=== PATIENT | male | born 1975 | race Caucasian/White ===

== ENCOUNTER 2020-12-26 12:19 | Outpatient (REF) | payer OTHER, SELFPAY ==
[2020-12-26 13:59] LABS: ALT 56 U/L (16-63); AST 27 U/L (15-37); Calculated LDL 124 mg/dL (<100); Cholesterol 228 mg/dL (<200); HDL Cholesterol 34 mg/dL (40-60); Triglyceride 351 mg/dL (<150)
== END 2020-12-26 12:39 ==
LOC: NCHCN 12:19
PROVIDERS: PCP Nurse Practitioner Family; Visit Provider Nurse Practitioner Family
DX: E78.00 Pure hypercholesterolemia, unspecified (principal); F10.10 Alcohol abuse, uncomplicated
CPT/HCPCS: 80061; 84450; 84460

== ENCOUNTER 2021-05-23 06:07 | Day surgery (SDC) | payer OTHER, SELFPAY ==
[2021-05-23 06:18] VITALS: BP 126/94; PULSE 86; RESP 16; TEMP 36.3; O2SAT 96
--- NOTE | 2021-05-23 06:25 | W.COLOREPORT ---
Date of service: 05/23/21 Time of Service: : Colonoscopy Report Date of procedure: 05/23/21 Pre-op diagnosis general: Colon Cancer Screening Post-op diagnosis procedure note: other (Colon polyp, mild diverticulosis) Procedure: Colonoscopy with polypectomy Surgeon: Cookie Munguia Anesthesia Type: General:No Airway (ASA 2/ Zelda Soni CRNA) Estimated blood loss (mL): 3 Pathology: other (Transverse polyp) Complications: None Disposition: same day Indications: 46 y/o male with diverticulitis (s/p colon resection) presents for his colonoscopy screening pre-op. He reports that he had a Colonoscopy 3-4 years ago while in [place] for evaluation of diverticulosis, after which he had colon resection. He denies a family history of colon cancer. He denies any changes in bowel habits including bloody or black tarry stools, abdominal pain, diarrhea or constipation. He denies constitutional symptoms. Denies use of marijuana or any other recreational or illegal drugs. Prep: Miralax/Dulcolax Procedure Start Time: : Procedure End Time: :53 Retraction Time: 15 minutes Findings: One small <5 mm polyp at the distal Transverse colon Mild diverticulosis in the descending colon Procedure Description: After informed consent was obtained the patient was taken to the procedure room and placed in a left decubitous position. Monitors were applied and a time out was done. The patients name, date of , procedure, allergies to medications and metal in their body was reviewed. The patient was then sedated. Once sedated and comfortable a rectal exam was done. External exam was normal. Internal exam revealed a normal sphincter tone and no palpable masses. The prostate felt smooth and normal in size. The scope was then introduced and retro-flexed. No internal hemorrhoids, polyps or masses were identified on retro-flexion. The scope was then advanced to the cecum witthout difficulty. The ileocecal vlave and appendiceal orifice were identified. The prep was adequate. The scope was then slowly retracted over 15 minutes back into the rectum. Polyps were removed with cold forceps in the distal transverse colon. There was mild diverticulosis noted in the descending colon. The anastamosis was visualized. The scope was removed and the patient was woken up and taken back to Same day surgery in stable condition. The patient tolerated the procedure well and there were no immediate complications. Follow up: The patient should follow up in 5-10 years unless they develop changes in bowel habits or other new gastrointestinal complaints.
--- NOTE | 2021-05-23 06:25 | W.PM.DSUDISC ---
Discharge Plan Disposition Patient Disposition: HOME Condition: Good Discharge Details Reason For Visit: Colonoscopy Attending Provider: Cookie Munguia Primary Care Provider: Sandy Jenkins Home Meds and New Rx's Prescriptions: Continued amoxicillin-pot clavulanate [Augmentin] 875-125 mg tablet 1 tab PO BID RF: 0 ibuprofen 200 mg capsule 400 mg PO Q6H PRNRF: 0 acetaminophen 500 mg capsule 1,000 mg PO Q6H PRNRF: 0 Discontinued polyethylene glycol 3350 17 gram/dose powder 238 g PO ONCE Qty: 238 RF: 0 bisacodyl [Dulcolax (bisacodyl)] 5 mg tablet,delayed release (DR/EC) 5 mg PO ONCE Qty: 4 RF: 0 Discharge Instructions Additional Instructions: Findings: One small polyp A few small diverticula Follow up: depends on final pathology. I will send you a letter in the mail Please call if you develop: fevers >101.5 Nausea or Vomiting Abdominal pain that is not transient Rectal bleeding that is more then a tbsp A hard abdomen and inability to pass gas DAY SURGERY UNIT POST ENDOSCOPY INSTRUCTIONS Instructions for everyone who is given Anesthesia: For your safety, please do the following for the next 24 Hours: a. Do not drive or operate dangerous equipment b. Do not drink alcohol beverages or use any recreational drugs for the first 24 hours or while taking pain medications. The medications in your body may have a reaction that can be dangerous. c. Do not make any important decisions or sign any important papers 1. Generally there are no restrictions on your activity after a day or so has gone by, but you may feel a bit fatigued for a few days. 2. After you arrive home you may have a light meal and return to a normal diet as you can tolerate it without feeling sick to your stomach. 3. After surgery, you may feel pain or discomfort. This should be only transient, but if it persists please contact your doctor. 4. If there are any questions regarding the findings of your procedure, please feel free to contact your doctor. 6. If you are unable to contact your doctor with a problem, contact the hospital at [phone]. 7. Continue all your regular medications unless directed otherwise. I understand the above instructions and have no questions. Signature of Patient or Responsible Adult Escort Date/Time Name of Responsible Adult Escort Signature of Nurse Date/Time Activity:: Activity as Tolerated Diet:: High Fiber diet Discharge Orders Discharge Orders: Discharge Order (Routine); Ordered 05/23/21 Ordered By: Cookie Munguia
[2021-05-23] MEDS: Lactated Ringers 1,000 ML 80 ML IV (06:38)
--- NOTE | 2021-05-23 07:10 | ANES.PREOP_ITS ---
General Info Date of Service Date Performed: 05/23/21 Height: 5 ft 10.08 in Weight: 94.8 kg Body Mass Index (BMI): 29.9 Surgical Procedure: Operation Date: 05/23/21 07:35 Proposed Procedures Side Surgeon flora Munguia MD Meds Allergies and Home Medications Allergies Allergy/AdvReac Type Severity Reaction Status Date / Time Sulfa (Sulfonamide Allergy Severe hives Verified 05/19/21 14:01 Antibiotics) Home Medication Medication Instructions Recorded acetaminophen 500 mg capsule 1,000 mg PO Q6H PRN cap 12/30/20 ibuprofen 200 mg capsule 400 mg PO Q6H PRN cap 12/30/20 amoxicillin 875 mg-potassium 1 tab PO BID 05/05/21 clavulanate 125 mg tablet bisacodyl 5 mg tablet,delayed 5 mg PO ONCE #4 tab 05/05/21 release polyethylene glycol 3350 17 238 g PO ONCE #238 g 05/05/21 gram/dose oral powder Current Visit Medications: Current Medications Generic Name Dose Route Start Last Admin Trade Name Bryantq PRN Reason Stop Dose Admin Hyoscyamine Sulfate 0.125 mg 05/23/21 06:26 Hyoscyamine 0.125 Mg Sl/Oral/Chew SL DIRECTED PRN Ringer's Solution 1,000 mls @ 80 mls/hr 05/23/21 06:00 05/23/21 06:38 IV 06/21/21 23:59 80 mls/hr INFUSION TEJA Administration IV Miscellaneous Supplies 1 each 05/23/21 06:00 Iv Access IV 06/21/21 23:59 DIRECTED TEJA Ondansetron HCl 4 mg 05/23/21 06:26 Ondansetron 4 Mg/2 Ml Vial IVP Q4H PRN PRN Nausea / Vomiting Sodium Chloride 0 ml 05/23/21 06:00 Normal Saline Flush 10 Ml Syr IV 06/21/21 23:59 PRN PRN Sodium Chloride 0 ml 05/23/21 06:00 Normal Saline 10 Ml Vial IJ 06/21/21 23:59 DIRECTED PRN Sterile Water 0 ml 05/23/21 06:00 Water,Injection,Sterile 10 Ml Vial IJ 06/21/21 23:59 DIRECTED PRN PFSH Active Problems Active Problems: Problem Status Onset Code Vitamin D deficiency E55.9 Vitamin B deficiency E53.9 Hypercholesterolemia E78.00 Pipe smoker F17.290 Screening for colon cancer Z12.11 Medical History Medical History History of diverticulitis Skin lesions Tobacco Smoking/Tobacco Use Status: Current every day Tobacco Type: pipe Alcohol Alcohol Intake: current Alcohol intake frequency: 3 or more drinks per day Alcohol type: beer Substance Use Substance use type: does not use Vital Signs and Lab Results Vital Signs Most Recent Vital Signs in EMR: Most Recent Vital Signs Temp Pulse Resp BP Pulse Ox 36.3 C L 86 16 126/94 H 96 05/23/21 06:18 05/23/21 06:18 05/23/21 06:18 05/23/21 06:18 05/23/21 06:18 Lab Results Blood Type / Crossmatch: No Data to Display Complete Blood Count: No Data to Display Complete Metabolic Panel: No Data to Display Liver Function Panel: No Data to Display Coagulation Panel: No Data to Display Cardiac Panel: No Data to Display Arterial Blood Gas: 2 No Data to Display Venous Blood Gas: No Data to Display Pancreas Panel: No Data to Display Thyroid Panel: No Data to Display Infectious Disease: No Data to Display Blood Cultures: No Data to Display Toxicology Panel: No Data to Display Anesthesia Assessment and Plan Anesthesia History Personal History: No History of Anesthesia Complications Family History: No Family History of Anesthesia Complications Exercise Tolerance Exercise Tolerance: Metabolic Equivalents>4 Pertinent Negatives Pertinent Negatives: No Symptoms of GERD (Resolved since weight loss) Cardiac & Pulmonary Exam Cardiac Exam: Normal S1/S2 Heart Sounds Pulmonary Exam: Clear Bilateral Breath Sounds Airway Exam Known Difficult Airway: No Mallampati Class: 1 Mouth Opening: Normal (> 3cm) Thyromental Distance: Greater than 3 cm Neck Range of Motion: Full ROM Neck Circumference: Normal Teeth Condition: Normal Dentition ASA Classification ASA Score: ASA 2 Emergency Case?: No NPO Status NPO Status: NPO Clears >2 hours, Solids >8 hours Anesthesia Plan Resuscitation Status: Full Code Anesthesia Technique: General Anesthesia Airway Planned: Natural Airway Monitors Used: Standard Monitors
[2021-05-23 07:21] VITALS: BMI 29.9
--- NOTE | 2021-05-23 07:45 | BOWEL_PTH ---
PATIENT: Eugene Ramsay LOC: [facility] U#:[id number] AGE/SX: 46/M ROOM: RE05/23/[address]: Cookie Munguia MD : [id number] BED: DIS: 05/23/2021 SPEC #: [id number] RECD: 05/23/21 12:58 STATUS: SHADY REQ #: [id number] CHENG: 05/23/21 07:[address]: Cookie Munguia DEPT: Surgical Specimen RECD BY: Maylin Morris ENTERED: 05/23/21 12:58 SP TYPE: Bowel OTHR DR: Sandy Jenkins Tissues: 1 - BIOPSY BOWEL Procedures: GROSS AND MICRO LEVEL 4 Comments: [id number]
[2021-05-23 08:03] VITALS: BP 123/92; PULSE 80; RESP 16; TEMP 36.6; O2SAT 96
--- NOTE | 2021-05-23 08:04 | W.ANESPOSTOP ---
Postoperative Evaluation Date, Time and Location Date Performed: 05/23/21 Time Performed: 08:04 Patient Location: Day Surgery Unit Vital Signs Most Recent Imported Vital Signs: Most Recent Vital Signs Temp Pulse Resp BP Pulse Ox 36.3 C L 86 16 126/94 H 96 05/23/21 06:18 05/23/21 06:18 05/23/21 06:18 05/23/21 06:18 05/23/21 06:18 Most Recent Manually Entered Vital Signs: Adult Blood Pressure: 123/92 Heart Rate: 82 Respirations: 18 Oxygen Saturation (%): 96 Temperature (C): 36.6 C Pain Score (0-10 Scale): 0 Pain Score Most Recent Pain Score: 0 Assessment Mental Status: Awake (Alert & Oriented to Patient Baseline) Airway and Respiratory Function: Patent airway with normal (patient baseline) respiratory exam Cardiovascular Function: Hemodynamically Stable Hydration Status: Adequately Hydrated Nausea & Vomiting: No Nausea or Vomiting Pain: Pt. Denies Any Pain Peripheral Nerve Block: Patient did not receive a nerve block
[2021-05-23 08:05] VITALS: BP 123/92; PULSE 82; RESP 18; TEMPC 36.6; O2SAT 96
[2021-05-23 08:32] VITALS: BP 137/83; PULSE 75; RESP 16; TEMP 36.6; O2SAT 96
== END 2021-05-23 08:50 | disposition home or self-care (01) ==
PROVIDERS: PCP Nurse Practitioner Family; Visit Provider Surgery
PROC: 0DJD8ZZ Inspection of Lower Intestinal Tract, Via Natural or Artificial Opening Endoscopic (ICD-10-PCS; CPT 45378; principal; 2021-05-23 07:30)
DX: Z12.11 Encounter for screening for malignant neoplasm of colon (principal); K63.5 Polyp of colon; K57.30 Diverticulosis of large intestine without perforation or abscess without bleeding
CPT/HCPCS: 45380; 88305; J2001

== ENCOUNTER 2021-06-09 11:42 | Outpatient (REF) | payer OTHER, SELFPAY ==
[2021-06-09 15:21] LABS: HCT 51.8 % (40.0-50.0); HGB 18.6 g/dL (13.5-17.5); MCH 31.6 pg (27.0-33.0); MCHC 35.9 % (32.0-36.0); MCV 87.9 fL (80-95); MPV 11.9 fL (8.0-11.0); Platelet Count 228 10^3/uL (130-400); RBC 5.89 10^6/uL (4.36-5.78); RDW 11.9 % (11.8-14.1); WBC 8.61 10^3/uL (4.4-10.8)
== END 2021-06-09 11:43 | disposition home or self-care (01) ==
LOC: NCHCN 11:42
PROVIDERS: PCP Nurse Practitioner Family; Visit Provider Nurse Practitioner Family
DX: R04.0 Epistaxis (principal)
CPT/HCPCS: 85027

== ENCOUNTER 2022-02-15 12:31 | Outpatient (REF) | payer BC, SELFPAY ==
[2022-02-15 14:41] LABS: HCT 52.2 % (40.0-50.0); HGB 18.4 g/dL (13.5-17.5); MCH 30.5 pg (27.0-33.0); MCHC 35.2 % (32.0-36.0); MCV 86.6 fL (80-95); MPV 11.8 fL (8.0-11.0); Platelet Count 258 10^3/uL (130-400); RBC 6.03 10^6/uL (4.36-5.78); RDW 11.9 % (11.8-14.1); RDW-SD 37.4 fL; WBC 8.25 10^3/uL (4.4-10.8)
[2022-02-15 15:34] LABS: ALT 60 U/L (16-63); AST 33 U/L (15-37); Albumin 4.3 g/dL (3.4-5.0); Alkaline Phosphatase 74 U/L (46-116); Anion Gap 12.6 mmol/L (3-11); BUN 10 mg/dL (7-18); Bilirubin, Total 0.9 mg/dL (0.2-1.0); CO2 23.4 mmol/L (21.0-32.0); CREATININE 0.9 mg/dL (0.70-1.30); Calcium 9.3 mg/dL (8.5-10.1); Chloride 103 mmol/L (98-107); Glucose 107 mg/dL (74-106); Potassium 5.2 mmol/L (3.5-5.1); Sodium 139 mmol/L (136-145); Total Protein 7.3 g/dL (6.4-8.2); Vitamin B12 366 pg/mL (193-986)
[2022-02-15 15:43] LABS: Vitamin D 25 Total 18.4 ng/mL (30-100)
== END 2022-02-15 12:32 | disposition home or self-care (01) ==
LOC: NCHCN 12:31
PROVIDERS: PCP Nurse Practitioner Family; Visit Provider Nurse Practitioner Family
DX: Z00.00 Encounter for general adult medical examination without abnormal findings (principal); E53.8 Deficiency of other specified B group vitamins; E55.9 Vitamin D deficiency, unspecified
CPT/HCPCS: 80053; 82306; 85027; 82607

== ENCOUNTER 2022-06-12 17:07 | Outpatient (REF) | payer BC, SELFPAY | END 2022-06-12 17:08 | disposition home or self-care (01) | LOC: NCHCN 17:07 | PROVIDERS: Visit Provider Nurse Practitioner Family ==

== ENCOUNTER 2022-06-12 18:11 | Outpatient (REF) | payer BC, SELFPAY ==
[2022-06-12 15:26] LABS: Abs Immature Grans 0.04 10^3/uL (0.0-0.06); Absolute Basophil Count 0.05 10^3/uL (0.0-0.2); Absolute Eosinophil Count 0.22 10^3/uL (0.0-0.7); Absolute Monocyte Count 0.83 10^3/uL (0.1-0.8); Absolute Neutrophil Count 3.76 10^3/uL (1.2-6.7); Basophils % 0.7; Eosinophils % 3.1; HCT 49.8 % (40.0-50.0); HGB 17.5 g/dL (13.5-17.5); Immature Grans % 0.6; MCH 30.9 pg (27.0-33.0); MCHC 35.1 % (32.0-36.0); MCV 88 fL (80-95); MPV 11.8 fL (8.0-11.0); Monocytes % 11.9; Neutrophils % 53.7; Platelet Count 278 10^3/uL (130-400); RBC 5.66 10^6/uL (4.36-5.78); RDW 11.9 % (11.8-14.1); RDW-SD 38.3 fL
[2022-06-12 15:43] LABS: ALT 71 U/L (16-63); AST 35 U/L (15-37); Alkaline Phosphatase 66 U/L (46-116); Anion Gap 11.9 mmol/L (3-11); BUN 10 mg/dL (7-18); Bilirubin, Total 0.9 mg/dL (0.2-1.0); CO2 28.1 mmol/L (21.0-32.0); Calcium 8.8 mg/dL (8.5-10.1); Chloride 104 mmol/L (98-107); Glucose 105 mg/dL (74-106); Potassium 4.8 mmol/L (3.5-5.1); Sodium 144 mmol/L (136-145); Total Protein 6.7 g/dL (6.4-8.2)
[2022-06-14 13:48] LABS: Lyme Ab w Rflx to Lyme Confirm Negative (Negative)
[2022-06-15 19:05] LABS: Anaplasma phagocytophilum Negative (Negative); B. miyamotoi PCR Negative (Negative); Babesia divergens/MO-1 Negative (Negative); Babesia duncani Negative (Negative); Babesia microti Negative (Negative); Ehrlichia chaffeensis Negative (Negative); Ehrlichia ewingii/canis Negative (Negative); Ehrlichia muris eauclairensis Negative (Negative)
== END 2022-06-12 18:12 | disposition home or self-care (01) ==
LOC: NCHCN 18:11
PROVIDERS: Visit Provider Nurse Practitioner Family
DX: R53.83 Other fatigue (principal)
CPT/HCPCS: 80053; 87798; 85025; 86618

== ENCOUNTER 2022-09-14 10:08 | Outpatient (RCR) | payer BC, SELFPAY ==
--- NOTE | 2022-09-14 10:00 | HOLTER_ITS ---
APPROVED REPORT Conclusion This is a 48-hour Holter monitor ordered for palpitations Rhythm throughout was sinus with an average heart rate of 86. Minimum was 65, maximum 138 There were rare ventricular ectopic beats There were rare atrial premature beats, several blocked atrial premature beats There was no atrial fibrillation, no high-grade AV block, no pauses greater than 3 seconds The episode labeled SVT was in fact sinus tachycardia at 123 bpm No patient symptoms were reported
== END 2022-10-01 23:59 | disposition home or self-care (01) ==
LOC: CARDOPNVT 10:08
PROVIDERS: Referring Provider Nurse Practitioner Family; Visit Provider Nurse Practitioner Family
DX: R00.2 Palpitations (principal); R00.0 Tachycardia, unspecified
CPT/HCPCS: 93225; 93226

== ENCOUNTER 2022-10-26 00:38 | Outpatient (CLI) | payer BC, SELFPAY ==
--- NOTE | 2022-10-26 10:20 | DI.RAD_ITS ---
Exam(s) XR CHEST 2V PA LATERAL EXAM: XR CHEST 2V PA LATERAL CLINICAL HISTORY: SHORTNESS OF BREATH, R06.02, PERSONAL HX COVID, Z86.16 TECHNIQUE: 2D digital imaging was performed. COMPARISON: No exams were available for comparison FINDINGS: The heart is not enlarged. The lungs are clear and well expanded. No pleural effusion seen. Mediastin al contours appear intact. IMPRESSION: Normal chest. RADIATION DOSE DELIVERED: Total DLP
== END 2022-10-26 00:58 ==
LOC: DI 00:39
PROVIDERS: PCP Nurse Practitioner Family; Visit Provider Nurse Practitioner Family
DX: R06.02 Shortness of breath (principal); Z86.16 Personal history of COVID-19
CPT/HCPCS: 71046

== ENCOUNTER 2024-05-16 12:10 | Emergency (ER) | payer BC, SELFPAY ==
[2024-05-16 12:14] VITALS: BP 165/110; PULSE 102; RESP 18; TEMP 35.9; O2SAT 97
--- NOTE | 2024-05-16 12:51 | W.ED.GENAD ---
Discharge Plan Disposition Patient Disposition: Home Discharge Details Clinical Impression: Laceration of right little finger, Immunization, tetanus-diphtheria Primary Care Provider: Sandy Jenkins ED Provider: Shadi Keene Home Meds and New Rx's Prescriptions: No Action acetaminophen 500 mg capsule 1,000 mg PO Q6H PRN Discharge Instructions Instructions: Laceration Repair With Stitches ED Additional Instructions: You were seen in the emergency department for your right little finger laceration which was closed with 4 sutures that will need to be removed in 7 to 10 days. As we discussed, please keep your wound clean, dry and covered. Please do not soak in a tub, swim or engage in any activities which could introduce dirt into your wound. You may return to the emergency department, go to urgent care or go to your primary care provider in 7 to 10 days to have your stitches removed. As we discussed if you develop any foul-smelling drainage fevers streaking signs of infection or have any other concerns please return to the emergency department. For your pain please take medications as follows: 1. Take acetaminophen (Tylenol), 1,000 mg (two 500 mg tabs) every 6 hours [2. Take ibuprofen (Advil), 400 mg every 6 hours.] Discharge Data Discharge Date/Time-TO BE ENTERED AT DEPARTURE: 05/16/24 14:13 HPI General Date/Time Provider Initiated Documentation: 05/16/24 12:25. HPI Narrative: MDM This is an overall very well-appearing mildly tachycardic but afebrile 49-year-old male with right dominant little finger laceration which will require primary closure following tetanus immunization. No pain out of proportion to suggest necrotizing soft tissue infection. Given no history of any small pieces of glass I was not concerned for retained foreign body so I did not feel the patient required plain films. Patient irrigated his wound at home so we will defer further irrigation in the ED. Will apply LET and complete primary closure. Patient has intact range of motion in his right little finger so I am not concerned for tenderness injury. Will admitting counselor patient on return indications including streaking signs of infection foul-smelling drainage or fevers. Patient will be discharged with empiric trial of expectant outpatient management. His tachycardia resolved in the emergency department. HPI This is a 49-year-old [id number] male arrived to the emergency department via private vehicle in the setting of a laceration he sustained to his right little finger approximately 2 hours ago. Patient was reportedly cleaning a porcelain jug which inadvertently broke. He says that there was not lots of glass. He did not lose consciousness. He did not hit his head. He was able to rinse his wound out prior to coming to the emergency department. He has no limitations in the range of motion in his right little finger. No other injuries. Exam General: Well-appearing in no acute distress speaking in complete sentences. Head: Normocephalic, atraumatic. Eye: Extraocular eye movements intact. No conjunctival injection. No scleral icterus. Ear, nose, mouth, throat: Grossly normal inspection. Normal voice, handling secretions normally. Neck: Trachea midline. Cardiovascular: Well-perfused distal extremities. Respiratory: Nonlabored respiration. Gastrointestinal: Nondistended abdomen. Musculoskeletal: On the ulnar aspect of the right little finger just proximal to the PIP joint there is an approximately 2 cm avulsion that violates the subcutaneous tissue. Full range of motion in right little finger. Right little finger tip warm well-perfused with less than 2-second cap refill. 2+ right radial pulse. Skin: Normal for age and race, grossly normal temperature and turgor. No acute rash. Neurologic: Alert and appropriate, no apparent acute deficits. Psychiatric: Mood and manner are appropriate. Grooming and personal hygiene are appropriate. Related Data Home Medications Medication Instructions Recorded Confirmed acetaminophen 500 mg capsule 1,000 mg PO Q6H PRN 12/30/20 05/16/24 Allergies Allergy/AdvReac Type Severity Reaction Status Date / Time Sulfa (Sulfonamide Allergy Severe hives Verified 05/16/24 12:17 Antibiotics) General Stated Complaint: Laceration SUZANNE: 4 Course Vital Signs Vital signs: Vital Signs Temperature 35.9 C L 05/16/24 12:14 Pulse 102 H 05/16/24 12:14 Respiratory Rate 18 05/16/24 12:14 Blood Pressure 165/110 H 05/16/24 12:14 Pulse Oximetry 97 05/16/24 12:14 Temperature 35.9 C L 05/16/24 12:14 Temperature Source Temporal Artery Scan 05/16/24 12:14 Pulse 102 H 05/16/24 12:14 Respiratory Rate 18 05/16/24 12:14 Blood Pressure 165/110 H 05/16/24 12:14 Pulse Oximetry 97 05/16/24 12:14 Procedures Laceration Laceration 1: Site: hand Side (If applicable): right Size (cm): 2 Description: flap Depth: simple, single layer Local Anesthetic: Lidocaine 2% and other anesthetic (L ET) Amount of anesthesia used (mL): 5 Pre-repair: wound explored Skin layer closed with: other (5-0 Ethilon) Size (cm): 5-0 Number of sutures: 4 Technique: simple, interrupted Medical Decision Making Quality:SDOH Health Related Social Needs: No Data to Display PFSH All Active Problems (Updated 05/16/24 @ 14:03 by Shadi Keene MD) Immunization, tetanus-diphtheria (Acute) Laceration of right little finger (Acute) Lateral epicondylitis of right elbow (Acute) Injection: 04/19/2022 Telangiectasia (Acute) Basal cell carcinoma of nose (Acute) Hypertension (Chronic) Vitamin D deficiency (Acute) Vitamin B deficiency (Acute) Hypercholesterolemia (Acute) Pipe smoker (Acute) Screening for colon cancer (Acute) Medical History (Updated 05/16/24 @ 14:03 by Shadi Keene MD) History of diverticulitis Skin lesions Surgical History (Updated 06/16/21 @ 14:34 by Char Landry) Normal colonoscopy (~05/2021) Social History (Updated 05/05/21 @ 08:47 by PAOLO Carpio) Smoking/Tobacco Use Status: Current every day Tobacco Type: pipe Smoking risk assessment performed?: Yes Alcohol Intake: current Alcohol Intake frequency: 3 or more drinks per day Alcohol type: beer Substance use type: does not use Do you feel safe at home: Yes Do you feel safe in your relationship?: Yes
[2024-05-16] MEDS: Lidocaine/Epinephri/Tetracaine Topical Gel 3 ML TP (12:53)
[2024-05-16] MEDS: Ibuprofen 600 MG TAB PO (12:53)
[2024-05-16] MEDS: Acetaminophen 500 MG TAB 1000 MG PO (12:53)
[2024-05-16 13:48] VITALS: PULSE 77; RESP 18; O2SAT 98
[2024-05-16 14:12] VITALS: PULSE 80
== END 2024-05-16 14:13 | disposition home or self-care (01) ==
LOC: ER 13:06
PROVIDERS: Emergency Provider Emergency Medicine; PCP Nurse Practitioner Family
DX: S61.216A Laceration without foreign body of right little finger without damage to nail, initial encounter (principal); I10 Essential (primary) hypertension; F17.290 Nicotine dependence, other tobacco product, uncomplicated; Z23 Encounter for immunization; W25.XXXA Contact with sharp glass, initial encounter; Y93.61 Activity, american tackle football; Y92.89 Other specified places as the place of occurrence of the external cause
CPT/HCPCS: 12001; 90471; 90715; 99283

== ENCOUNTER 2024-05-26 15:26 | Emergency (ER) | payer BC, SELFPAY ==
--- NOTE | 2024-05-26 16:17 | NUR.NOTE ---
Nursing Note: Patient provided with discharge instructions to watch for signs of infection and return for evaluation if infection is suspected.
--- NOTE | 2024-05-26 16:38 | NUR.NOTE ---
Left without paperwork, verbal instructions given to patient.
--- NOTE | 2024-05-26 16:44 | W.ED.FU ---
Date of service: 05/16/24 Follow Up Plan: Eugene presented to the emergency department today for suture removal. He had 3 sutures placed in his right little finger on 05/16/2024. He presented today to have sutures removed. These were removed by industrial engineering technologist. RN reports that these were removed without difficulty, wounds edges were well-approximated, no surrounding erythema/tenderness or drainage. Patient did not want to wait for provider evaluation, I did not personally see patient. He eloped after receiving verbal discharge instructions from triage nurse for s/sx of infection. No provider evaluated pt. I did review patient ED visit note from 05/16/2024. No red flags on exam, laceration was sustained from cleaning a porcelain drug which broke. 4 sutures were placed. Tdap given.
== END 2024-05-26 16:45 ==
LOC: ER 15:38
PROVIDERS: Emergency Provider Nurse Practitioner Family; PCP Nurse Practitioner Family
DX: Z48.02 Encounter for removal of sutures (principal)

== ENCOUNTER 2025-06-17 18:05 | Emergency (ER) | payer BC, SELFPAY ==
[2025-06-17] VITALS (10 sets, daily range): BP systolic 173–188; BP diastolic 116–127; PULSE 67–85; RESP 12–31; TEMP 37.1; O2SAT 92–98
--- NOTE | 2025-06-17 18:00 | RT.EKG_ITS ---
APPROVED REPORT Exam: Resting ECG Reason for Exam: chest pain Patient Location: E HR:78 bpm ECG Measurements Heart Rate 78 AXIS AL 157 P 43 QRSd 80 QRS 4 QT 379 T 35 QTc 434 Conclusion Sinus rhythm...normal P axis, V-rate 60- 99 Inferior infarct, old...Q >35mS, II III aVF
--- NOTE | 2025-06-17 18:27 | ED.GENADUL_ITS ---
Discharge Plan Disposition Patient Disposition: Home Condition: Stable Discharge Details Clinical Impression: Dental infection Primary Care Provider: Sandy Jenkins ED Provider: Jacky George Home Meds and New Rx's Prescriptions: New amoxicillin-pot clavulanate 875-125 mg tablet 1 tab PO BID 10 Days Qty: 20 0RF No Action acetaminophen 500 mg capsule 1,000 mg PO Q6H PRN Discharge Instructions Instructions: Amoxicillin and Clavulanate, Dental Pain ED Additional Instructions: You were seen in the emergency department for your dental infection with small abscess, we drained this with a needle, please perform salt water gargles with warm salt water 3 times per day, take the prescribed Augmentin as directed. Please use therapeutic dosing of Tylenol (acetamenophen) & Advil (ibuprofen) in an alternating fashion as follows: Take 1000mg of Tylenol every 6 hours without missing doses- that is 4 times per day. Prison in between the Tylenol dosings, take 400-600mg of Advil also on a 6 hour schedule, that is also 4 times per day. The daily maximum dosing of Tylenol is 4000mg, and the daily maximum dosing of A dvil is 2400mg. This is safe to do for weeks. Please note that some common cold medications & prescription pain medications may contain acetamenophen and you need to read OTC drug labels and factor that in to maximum daily dosings. Please return for any excessive drooling, vocal changes, decreased range of motion of jaw and neck swelling. Referrals: Sandy Jenkins [Primary Care Provider, Medicine] Discharge Data Discharge Date/Time-TO BE ENTERED AT DEPARTURE: 06/17/25 19:49 HPI General Date/Time Provider Initiated Documentation: 06/17/25 18:17 . HPI Narrative: 50 year-old male presents to ED today by POV/ambulating with a chief complaint of dental pain and swelling above his front R tooth with onset over the past couple days- also endorsing some chest tightness unrelated. Quality described as throbbing, no radiation to trismus, vocal changes, drooling, fever, sore throat, cough, shortness of breath, nausea/vomiting, endorses some chest tightness L sided. Severity is described as mild to moderate. Palliating factors include OTC pain relievers without relief. Provoking factors include nothing specific. Patient not anticoagulated. Related Data Home Medications ?Medication ?Instructions ?Recorded ?Confirmed acetaminophen 500 mg capsule 1,000 mg PO Q6H PRN 12/3006/17/25 amoxicillin 875 mg-potassium 1 tab PO BID 10 days #20 tabs 06/17/25 clavulanate 125 mg tablet Previous Rx's ?Medication ?Instructions ?Recorded amoxicillin 875 mg-potassium 1 tab PO BID 10 days #20 tabs 06/17/25 clavulanate 125 mg tablet Allergies Allergy/AdvReac Type Severity Reaction Status Date / Time Sulfa (Sulfonamide Allergy Severe hives Verified 06/17/25 18:10 Antibiotics) General Stated Complaint: DentalOral SUZANNE: 3 Review of Systems All systems reviewed & are unremarkable except as noted in HPI and below Exam Narrative Exam Narrative: GENERAL APPEARANCE: Well-nourished, non-toxic, awake and alert, atraumatic, no acute distress. SKIN: Warm, pink, dry, intact, without rashes/lesions/ulcerations. HEAD: Normocephalic, atraumatic, normal hair distribution for gender/age. EYES: Normal conjunctiva, no exudates on lids/lashes. ENT: Nares patent, no circumoral cyanosis, no facial swelling, small periapical abscess to frontal gums, no tonsillar swelling/erythema, uvula midline, normal jaw ROM NECK: Supple, trachea midline, painless cervical ROM. LUNGS/CHEST: Lungs CTA bilaterally- no rhonchi/rales/wheezes diffusely, non- labored respirations, normal A/P diameter, symmetrical expansion, no chest wall deformity, no crepitus HEART (CV/PV): Regular rate and rhythm without murmur, no peripheral edema, no JVD. ABDOMEN: Soft, non-distended, no guarding, no tenderness. MSK: Normal ROM, no swelling/deformity to bilateral UEs or LEs, moving all extremities without weakness, no cyanosis, spine midline without tenderness, normal curvature. NEURO: Mental Status AAOx4 - alert to person, place, time, events No facial droop, no forehead involvement. Motor: No focal weakness - strength 5/5 in bilateral UEs and LEs, proximal and distal, symmetric. Sensory: sensation intact to light touch globally. Gait normal: patient ambulated without ataxia into ED room. PSYCH: euthymic, cooperative, pleasant, appropriate speech Course Vital Signs Vital signs: Vital Signs Temperature 37.1 C 06/17/25 18:07 Pulse 85 06/17/25 18:07 Respiratory Rate 16 06/17/25 18:07 Blood Pressure 188/127 H 06/17/25 18:07 Pulse Oximetry 98 06/17/25 18:07 Temperature 37.1 C 06/17/25 18:10 Temperature Source Oral 06/17/25 18:10 Pulse 85 06/17/25 18:10 Respiratory Rate 16 06/17/25 18:10 Blood Pressure 188/127 H 06/17/25 18:10 Pulse Oximetry 98 06/17/25 18:10 Oxygen Delivery Method Room Air 06/17/25 18:10 Oxygen Flow Rate 0 06/17/25 18:10 Pain Level 8 06/17/25 18:10 Procedure Abscess Drainage Provider that performed the procedure: Jacky George Standard Time Out Performed: No Patient Consented: Verbally Ultrasound: Not used Complications: None Procedure Description Note: Small periapical abscess was drained by needle aspiration with an 18-gauge needle to the frontal gums with small amount of purulent drainage produced, recommend salt water gargles and started on Augmentin Medical Decision Making This dictation utilizes [id number] dictation software and may contain unedited grammatical errors. 50 year-old male presents to ED today by POV/ambulating with a chief complaint of dental pain and swelling above his front R tooth with onset over the past couple days- also endorsing some chest tightness unrelated. Quality described as throbbing, no radiation to trismus, vocal changes, drooling, fever, sore throat, cough, shortness of breath, nausea/vomiting, endorses some chest tightness L sided. Severity is described as mild to moderate. Palliating factors include OTC pain relievers without relief. Provoking factors include nothing specific. Patients' medical history: Noncontributory, no cardiac history. Family and social history: Noncontributory. Pertinent exam findings / vital signs include small periapical abscess in frontal gums with purulent drainage after needle aspiration, benign cardiopulmonary exam, benign abdomen, neuro intact. Differential / pathologies of concern include dental infection, not peritonsillar abscess, dental abscess, ACS, anxiety. Diagnostic studies of: - CBC, CMP, troponin, EKG, XR chest. - CBC shows a nonspecific leukocytosis at 11.78 without left shift, stable hemoglobin - CMP without actionable abnormality - Troponin negative with reliable onset - X-ray chest without acute pathology - EKG normal sinus rhythm with no signs of ischemic changes or arrhythmia, normal intervals Interventions of: - Rx for Augmentin. -Needle aspiration with 18-gauge needle with purulent drainage ED Course/Assessment/Plan: 50-year-old male presents with periapical abscess of the frontal gums, this was drained with an 18-gauge needle, started the patient on Augmentin for dental infection, his chest pain is unlikely to be cardiac in nature with reliable troponin, normal EKG and no other pathology, he has no signs of near syncope nor shortness of breath with exertion, strict return criteria for any worsening infection especially with reduced range of motion of jaw, vocal changes, drooling, recommend he follow-up with his PCP for possible referral to cardiology for baseline studies. Findings not consistent with peritonsillar abscess, deep space infection, ACS. Disposition of dental infection. Patient verbalized understanding of the plan and return to ED criteria and engaged in shared decision making. Medical Records Medical records reviewed: Yes I reviewed the patient's medical records. Imaging Data Radiologic Study: Attestation: I personally reviewed and interpreted this imaging study as follows: Imaging: X-Ray Radiologist's impression: EXAM: XR CHEST 2V PA LATERAL CLINICAL HISTORY: chest pain. TECHNIQUE: 2D digital imaging was performed. COMPARISON: CR XR CHEST 2V PA LATERAL from 10/26/2022 FINDINGS: 2 views: Heart size is normal. The mediastinum is not widened. Lungs are clear. No infiltrates nor pleural effusions. IMPRESSION: No acute pulmonary findings.No significant change compared to 10/26/2022 Lab Data Lab results reviewed: Yes I reviewed the patient's lab results. Labs: Laboratory Tests Range/Units 06/17/25 18:37 WBC (4.4-10.8) 10^3/uL 11.78 H RBC (4.36-5.78) 10^6/uL 5.69 Hgb (13.5-17.5) g/dL 17.2 Hct (40.0-50.0) % 48.2 MCV (80-95) fL 85 MCH (27.0-33.0) pg 30.2 MCHC (32.0-36.0) % 35.7 RDW (11.8-14.1) % 11.9 Plt Count (130-400) 10^3/uL 246 MPV (8.0-11.0) fL 11.0 Immature Gran % % 0.0 Neutrophils % % 65.0 Lymphocytes % % 7.0 Atypical Lymphs % % 10 Monocytes % % 12.0 Eosinophils % % 6.0 Basophils % % 0.0 Nucleated RBC % (0.0-0.3) % 0.0 Absolute Neutrophils (1.2-6.7) 10^3/uL 7.66 H Absolute Lymphocytes (1.2-3.4) 10^3/uL 2.00 Absolute Monocytes (0.1-0.8) 10^3/uL 1.41 H Absolute Eosinophils (0.0-0.7) 10^3/uL 0.71 H Absolute Basophils (0.0-0.2) 10^3/uL 0.00 RBC Morphology Normal Sodium (136-145) mmol/L 141 Potassium (3.5-5.1) mmol/L 3.5 Chloride (98-107) mmol/L 104 Carbon Dioxide (21.0-32.0) mmol/L 27.4 Anion Gap (3-11) mmol/L 9.6 BUN (7-18) mg/dL 9 Creatinine (0.70-1.30) mg/dL 0.8 Est GFR (CKD-EPI 2020) (mL/min/1.73m2) 106.48 Glucose (74-106) mg/dL 98 Calcium (8.5-10.1) mg/dL 8.7 Total Bilirubin (0.2-1.0) mg/dL 1.4 H AST (15-37) U/L 21 ALT (16-63) U/L 46 Alkaline Phosphatase (46-116) U/L 75 Troponin I (<or=76) ng/L 9 Total Protein (6.4-8.2) g/dL 7.0 Albumin (3.4-5.0) g/dL 4.0 PFSH All Active Problems (Updated 06/17/25 @ 19:28 by PAOLO Alilson) Dental infection (Acute) Lateral epicondylitis of right elbow (Acute) Injection: 04/19/2022 Telangiectasia (Acute) Basal cell carcinoma of nose (Acute) Hypertension (Chronic) Vitamin D deficiency (Acute) Vitamin B deficiency (Acute) Hypercholesterolemia (Acute) Pipe smoker (Acute) Screening for colon cancer (Acute) Medical History (Updated 06/17/25 @ 19:28 by PAOLO Allison) History of diverticulitis Skin lesions Surgical History (Updated 06/16/21 @ 14:34 by Char Landry CMA) Normal colonoscopy (~05/2021) Social History (Updated 05/05/21 @ 08:47 by PAOLO Carpio) Smoking/Tobacco Use Status: Current every day Tobacco Type: pipe Smoking risk assessment performed?: Yes Alcohol Intake: current Alcohol Intake frequency: 3 or more drinks per day Alcohol type: beer Drug use: Never Substance use type: does not use Do you feel safe at home: Yes Do you feel safe in your relationship?: Yes PAWSS Have you Been Recently Intoxicated or Drunk Within the Last 30 days?: No Have you Ever Experienced Previous Episodes of Alcohol Withdrawal?: No Have you ever Experienced Withdrawal Seizures?: No Have you ever Experienced Delirium Tremens(DT)s?: No Have you ever undergone Alcohol Rehabilitation Treatment (i.e, inpt ot outpatient treatment programs)?: No Have you ever Experienced Blackouts?: No Have you ever Combined Alcohol with other Downers within the last 90 days?: No Have you ever Combined Alcohol with any other Substance of Abuse during the last 90 days?: No Positive Blood Alcohol level on Presentation? [PCS.BAL]: No Evidence of Increased Autonomic Activity (i.e. HR>120, tremor, sweating, agitation, nausea)?: No Result: 0 POCUS Exam (ED) Limited Soft Tissue Exam PROVIDER THAT PERFORMED THE STUDY: Jacky George
--- NOTE | 2025-06-17 18:30 | DI.RAD_ITS ---
Exam(s) XR CHEST 2V PA LATERAL EXAM: XR CHEST 2V PA LATERAL CLINICAL HISTORY: chest pain. TECHNIQUE: 2D digital imaging was performed. COMPARISON: CR XR CHEST 2V PA LATERAL from 10/26/2022 FINDINGS: 2 views: Heart size is normal. The mediastinum is not widened. Lungs are clear. No infiltrates nor pleural effusions. IMPRESSION: No acute pulmonary findings.No significant change compared to 10/26/2022 DATA REPOSITORY: RADIATION DOSE DELIVERED:
[2025-06-17] MEDS: Amoxicillin 875/Clav. 125 TAB PO (18:45)
[2025-06-17 18:47] LABS: HCT 48.2 % (40.0-50.0); HGB 17.2 g/dL (13.5-17.5); MCH 30.2 pg (27.0-33.0); MCHC 35.7 % (32.0-36.0); MCV 85 fL (80-95); MPV 11.0 fL (8.0-11.0); Platelet Count 246 10^3/uL (130-400); RBC 5.69 10^6/uL (4.36-5.78); RDW 11.9 % (11.8-14.1); RDW-SD 35.9 fL; WBC 11.78 10^3/uL (4.4-10.8)
[2025-06-17 19:05] LABS: ALT 46 U/L (16-63); AST 21 U/L (15-37); Albumin 4.0 g/dL (3.4-5.0); Alkaline Phosphatase 75 U/L (46-116); Anion Gap 9.6 mmol/L (3-11); BUN 9 mg/dL (7-18); Bilirubin, Total 1.4 mg/dL (0.2-1.0); CO2 27.4 mmol/L (21.0-32.0); Calcium 8.7 mg/dL (8.5-10.1); Chloride 104 mmol/L (98-107); Estimated GFR 106.48 (mL/min/1.73m2); Glucose 98 mg/dL (74-106); Potassium 3.5 mmol/L (3.5-5.1); Sodium 141 mmol/L (136-145); Total Protein 7.0 g/dL (6.4-8.2); Troponin I 9 ng/L (<or=76)
[2025-06-17 19:06] LABS: Immature Grans % 0.0 %
[2025-06-17 19:07] LABS: Abs Immature Grans 0.00 10^3/uL (0.0-0.06); RBC Morphology Normal
== END 2025-06-17 19:49 | disposition home or self-care (01) ==
PROVIDERS: Emergency Provider Physician Assistant; PCP Nurse Practitioner Family
DX: K04.7 Periapical abscess without sinus (principal); R07.9 Chest pain, unspecified
CPT/HCPCS: 10160; 36415; 80053; 93005; 99284; 71046; 84484; 85025; 93010